=== PATIENT | female | born 1995 | race Caucasian/White ===

== ENCOUNTER 2025-02-19 16:58 | Emergency (ER) | payer MEDICAID, SELFPAY ==
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
[2025-02-19 17:03] VITALS: BP 129/85; PULSE 99; RESP 18; TEMP 36.4; O2SAT 99
[2025-02-19 17:06] VITALS: BMI 25.6
== END 2025-02-19 18:46 ==
PROVIDERS: Emergency Provider Emergency Medicine
DX: Z02.89 Encounter for other administrative examinations (principal); S60.221A Contusion of right hand, initial encounter; V49.40XA Driver injured in collision with unspecified motor vehicles in traffic accident, initial encounter
CPT/HCPCS: 73130; 99283